=== PATIENT | male | born 1990 | race Caucasian/White ===

== ENCOUNTER 2017-12-06 18:06 | Emergency (ER) | payer MEDICAID, OTHER ==
[~2017-12-06] VITALS: Ht 170.2 cm; Wt 64.0 kg
[2017-12-06 18:10] VITALS: BP 150/89
[2017-12-06 18:45] LABS: BASOPHILS % (AUTO) 0.5 % (0-1); EOSINOPHILS # (AUTO) 0.3 X10'3 (0-0.9); EOSINOPHILS % (AUTO) 3.1 % (0-6); HEMATOCRIT 44.5 % (42.0-52.0); HEMOGLOBIN 15.5 g/dl (14.0-17.9); LYMPHOCYTES # (AUTO) 2.3 X10'3 (1.1-4.8); LYMPHOCYTES % (AUTO) 22.3 % (21-51); MEAN CORPUSCULAR HEMOGLOBIN 32.5 PG (27.0-31.0); MEAN CORPUSCULAR HGB CONC 34.8 % (33.0-36.5); MEAN CORPUSCULAR VOLUME 93.3 FL (78-98); MEAN PLATELET VOLUME 7.7 FL (7.4-10.4); MONOCYTES # (AUTO) 0.7 X10'3 (0-0.9); MONOCYTES % (AUTO) 7.1 % (2-12); NEUTROPHILS # (AUTO) 6.8 X10'3 (1.8-7.7); PLATELET COUNT 337 X10'3 (140-440); RED BLOOD COUNT 4.77 X10'6 (4.70-6.10); RED CELL DISTRIBUTION WIDTH 13.2 % (11.5-14.5); WHITE BLOOD COUNT 10.1 X10'3 (4.5-11.0)
[2017-12-06 19:00] LABS: PARTIAL THROMBOPLASTIN TIME 24 SECONDS (22-32); PROTHROMBIN TIME 10.1 SECONDS (9.0-12.0)
[2017-12-06 19:02] LABS: ALANINE AMINOTRANSFERASE 45 U/L (12-78); ALBUMIN 4.4 G/DL (3.4-5.0); ALBUMIN/GLOBULIN RATIO 1.1 (1.1-1.5); ALKALINE PHOSPHATASE 122 IU/L (46-116); ANION GAP 11 (8-16); ASPARTATE AMINO TRANSFERASE 17 U/L (10-37); BILIRUBIN,TOTAL 0.2 MG/DL (0.1-1.0); BLOOD UREA NITROGEN 12 MG/DL (7-18); BUN/CREATININE RATIO 11.5 (5.4-32.0); CALCIUM 8.8 MG/DL (8.5-10.1); CHLORIDE 104 MMOL/L (99-107); CREATININE 1.04 MG/DL (0.60-1.10); GLUCOSE 173 MG/DL (70-104); POTASSIUM 3.4 MMOL/L (3.5-5.1); SODIUM 142 MMOL/L (135-145); TOTAL CARBON DIOXIDE 26.9 MMOL/L (24-32); TOTAL PROTEIN 8.3 G/DL (6.4-8.2); eGFR 85 ML/MIN
== END 2017-12-06 22:45 | disposition left against medical advice (07) ==
LOC: ER 18:06
DX: R07.89 Other chest pain (principal); Z53.21 Procedure and treatment not carried out due to patient leaving prior to being seen by health care provider
CPT/HCPCS: 36415; 80053; 84484; 85025; 85610; 85730; 99281

== ENCOUNTER 2019-06-03 19:48 | Inpatient (IN) | payer MEDICAID, OTHER ==
[~2019-06-03] VITALS: Ht 170.2 cm; Wt 68.2 kg
[~2019-06-03 19:48] MED LIST: thiamine inj. 100 MG, folic acid inj. 2 MG in normal saline 100ml IV soln 100 ML IV SCH
[2019-06-03 20:29] LABS: BASOPHILS # (AUTO) 0.1 X10'3 (0-0.2); BASOPHILS % (AUTO) 0.4 % (0-1); EOSINOPHILS # (AUTO) 0.1 X10'3 (0-0.9); EOSINOPHILS % (AUTO) 0.6 % (0-6); HEMATOCRIT 39.6 % (42.0-52.0); HEMOGLOBIN 13.5 g/dl (14.0-17.9); MEAN CORPUSCULAR HEMOGLOBIN 32.5 PG (27.0-31.0); MEAN CORPUSCULAR HGB CONC 34.1 g/dL (33.0-36.5); MEAN CORPUSCULAR VOLUME 95.3 FL (78-98); MEAN PLATELET VOLUME 7.8 FL (7.4-10.4); MONOCYTES # (AUTO) 1.7 X10'3 (0-0.9); MONOCYTES % (AUTO) 8.6 % (2-12); NEUTROPHILS # (AUTO) 16.6 X10'3 (1.8-7.7); NEUTROPHILS % (AUTO) 85.4 % (42-75); PLATELET COUNT 310 X10'3 (140-440); RED BLOOD COUNT 4.15 X10'6 (4.70-6.10); RED CELL DISTRIBUTION WIDTH 12.6 % (11.5-14.5); WHITE BLOOD COUNT 19.4 X10'3 (4.5-11.0)
[2019-06-03 20:37] LABS: PARTIAL THROMBOPLASTIN TIME 31 SECONDS (22-32)
[2019-06-03 20:39] LABS: ALANINE AMINOTRANSFERASE 90 U/L (12-78); ALBUMIN 3.4 G/DL (3.4-5.0); ALBUMIN/GLOBULIN RATIO 0.8 (1.1-1.5); ALKALINE PHOSPHATASE 134 IU/L (46-116); ANION GAP 7 (8-16); ASPARTATE AMINO TRANSFERASE 109 U/L (10-37); BILIRUBIN,TOTAL 0.5 MG/DL (0.1-1.0); BLOOD UREA NITROGEN 9 MG/DL (7-18); BUN/CREATININE RATIO 9.2 (5.4-32.0); CALCIUM 8.8 MG/DL (8.5-10.1); CHLORIDE 100 MMOL/L (99-107); CREATININE 0.98 MG/DL (0.60-1.10); GLUCOSE 142 MG/DL (70-104); POTASSIUM 3.9 MMOL/L (3.5-5.1); SODIUM 133 MMOL/L (135-145); TOTAL CARBON DIOXIDE 26.4 MMOL/L (24-32); TOTAL PROTEIN 7.8 G/DL (6.4-8.2); eGFR 90 ML/MIN
--- NOTE | 2019-06-03 21:09 | NUR ---
Claudia RN; Urine collected from patient and walked to Lab by HERSON Mccabe.
[2019-06-03 21:18] LABS: CLARITY,URINE CLEAR (Clear); COLOR,URINE YELLOW (Yellow); GLUCOSE, URINE NEGATIVE (Neg); KETONES,URINE NEGATIVE (Neg); LEUKOCYTE ESTERASE ,URINE TRACE (Neg); NITRITES, URINE NEGATIVE (Neg); OCCULT BLOOD,URINE NEGATIVE (Neg); PH,URINE 7.5 (4.8-8.0); PROTEIN,URINE NEGATIVE (Neg); UROBILINOGEN,URINE 0.2 E.U/dL (0.2-1.0)
[2019-06-03 21:23] LABS: UA COLLECTION TYPE CLN CATCH MIDSTREAM
[2019-06-03 21:24] LABS: BACTERIA,URINE FEW /HPF (Neg); RBC,URINE 0-2 /HPF (0-2); SQUAMOUS EPITHELIAL CELL,UR FEW /LPF (FEW); WBC,URINE 0-4 /HPF (0-4)
[2019-06-03 21:29] LABS: URINE AMPHETAMINE SCREEN POSITIVE (Neg); URINE BARBITUATE SCREEN NEGATIVE (Neg); URINE BENZODIAZEPINES SCREEN NEGATIVE (Neg); URINE CANNABINOID SCREEN POSITIVE (Neg); URINE COCAINE SCREEN NEGATIVE (Neg); URINE METHADONE SCREEN NEGATIVE (Neg); URINE OPIATE SCREEN NEGATIVE (Neg); URINE PHENCYCLIDINE SCREEN NEGATIVE (Neg)
[2019-06-03] MEDS ORDERED: normal saline 1000ML IV soln IV ONE (22:40)
[2019-06-03] MEDS ORDERED: CefTRIAXone 2gm/D5W 50ml 50 ML IV ONE (22:40)
[2019-06-03] MEDS ORDERED: TETanus/Pertussis (Acell)/Diphther VAC/PF (Tdap-Adult) 0.5ml syringe IM ONE (22:40)
[2019-06-03] MEDS ORDERED: vancomycin/NS 1 GM ADD-VANTAGE 250 ML IV ONE (22:40)
[2019-06-03] MEDS ORDERED: NO HOME MEDS (22:51)
[2019-06-03] MEDS ORDERED: HYDROmorphone inj. 0.5 MG/0.5 ML DISP.SYRIN IV PRN (23:05)
[2019-06-03] MEDS ORDERED: ondansetron/PF 4mg/2ml inj IV PRN (23:05)
[2019-06-03] MEDS ORDERED: magnesium hydroxide 30ml (MOM) UD suspension PO PRN (23:05)
[2019-06-03] MEDS ORDERED: potassium Cl 20 mEq SR tablet PO PRN ×2 (23:05)
[2019-06-03] MEDS ORDERED: acetaminophen 325mg tablet PO PRN (23:05)
[2019-06-03] MEDS ORDERED: magnesium Cl slow-release 64mg tablet PO PRN (23:05)
[2019-06-03] MEDS ORDERED: mag hydrox/Alum hydrox/simeth 30ml oral suspension PO PRN (23:05)
[2019-06-03] MEDS ORDERED: magnesium 2GM in 50ml NS 50 ML IV PRN (23:05)
[2019-06-03] MEDS ORDERED: potassium CL 10mEq/100ml bag 100 ML IV PRN ×2 (23:05)
[2019-06-03] MEDS ORDERED: diphenhydrAMINE 25mg capsule PO PRN (23:05)
[2019-06-03] MEDS ORDERED: magnesium 4gm in 100ml NS 100 ML IV PRN (23:05)
[2019-06-03] MEDS: normal saline 1000ml 1,000 ML IV SCH (23:19)
[2019-06-03] MEDS ORDERED: haloperidol lactate 5mg/ml inj IM PRN (23:45)
[2019-06-03] MEDS ORDERED: LORazepam 2 mg/ml vial IV PRN (23:45)
[2019-06-03] MEDS ORDERED: thiamine inj. 100 MG in normal saline 100ml IV soln 100 ML IV ONE (23:45)
[2019-06-04 00:30] VITALS: BP 122/69
[2019-06-04] MEDS: HYDROmorphone 1 mg/ml syringe IV PRN ×3 (00:58→09:03)
[2019-06-04 06:00] VITALS: BP 107/59
--- NOTE | 2019-06-04 06:15 | NUR ---
Patient in room ORTHO 4009. I have received report from and had the opportunity to ask questions and assume patient care CLEO Schroeder
[2019-06-04 06:24] LABS: ALANINE AMINOTRANSFERASE 97 U/L (12-78); ALBUMIN 2.9 G/DL (3.4-5.0); ALBUMIN/GLOBULIN RATIO 0.7 (1.1-1.5); ALKALINE PHOSPHATASE 125 IU/L (46-116); AMYLASE 21 U/L (25-115); ANION GAP 7 (8-16); ASPARTATE AMINO TRANSFERASE 74 U/L (10-37); BILIRUBIN,TOTAL 0.3 MG/DL (0.1-1.0); BLOOD UREA NITROGEN 6 MG/DL (7-18); BUN/CREATININE RATIO 7.3 (5.4-32.0); CALCIUM 8.2 MG/DL (8.5-10.1); CHLORIDE 105 MMOL/L (99-107); CREATININE 0.82 MG/DL (0.60-1.10); GLUCOSE 112 MG/DL (70-104); LIPASE 112 U/L (73-393); POTASSIUM 3.7 MMOL/L (3.5-5.1); SODIUM 138 MMOL/L (135-145); TOTAL CARBON DIOXIDE 26.1 MMOL/L (24-32); TOTAL PROTEIN 7.2 G/DL (6.4-8.2); eGFR > 90 ML/MIN
[2019-06-04 07:03] LABS: BASOPHILS % (AUTO) 0.2 % (0-1); EOSINOPHILS # (AUTO) 0.2 X10'3 (0-0.9); EOSINOPHILS % (AUTO) 1.6 % (0-6); HEMATOCRIT 40.4 % (42.0-52.0); HEMOGLOBIN 13.7 g/dl (14.0-17.9); LYMPHOCYTES # (AUTO) 1.3 X10'3 (1.1-4.8); LYMPHOCYTES % (AUTO) 8.4 % (21-51); MEAN CORPUSCULAR HEMOGLOBIN 32.4 PG (27.0-31.0); MEAN CORPUSCULAR HGB CONC 33.8 g/dL (33.0-36.5); MEAN CORPUSCULAR VOLUME 95.9 FL (78-98); MEAN PLATELET VOLUME 8.3 FL (7.4-10.4); MONOCYTES # (AUTO) 1.9 X10'3 (0-0.9); MONOCYTES % (AUTO) 12.6 % (2-12); NEUTROPHILS # (AUTO) 11.7 X10'3 (1.8-7.7); NEUTROPHILS % (AUTO) 77.2 % (42-75); PLATELET COUNT 265 X10'3 (140-440); RED BLOOD COUNT 4.21 X10'6 (4.70-6.10); RED CELL DISTRIBUTION WIDTH 12.5 % (11.5-14.5); WHITE BLOOD COUNT 15.2 X10'3 (4.5-11.0)
[2019-06-04] MEDS ORDERED: thiamine inj. 100 MG, folic acid inj. 2 MG in normal saline 100ml IV soln 100 ML IV SCH (08:00)
[2019-06-04] MEDS: K and/or MAG REPLACEMENT MC SCH (08:00)
[2019-06-04] MEDS ORDERED: MVI, adult No.4 with vit. K 10 ML in dextrose 5% water 500ml 500 ML IV SCH ×2 (08:00)
[2019-06-04] MEDS: normal saline 1000ml 1,000 ML IV SCH ×2 (09:01→20:42)
[2019-06-04] MEDS: CefTRIAXone/D5W-Rocephin 1gm 50 ML IV SCH (09:07)
[2019-06-04 10:00] VITALS: BP 123/74
--- NOTE | 2019-06-04 11:59 | NUR ---
paged Dr Awan: PAGER ID: [phone] MESSAGE: [id number] Gregory Rice: administered 1mg dilaudid 0900 effective for about 2 hrs; Pt 05/30/crying. Requesting breakthrough medication for relief. R arm merle. abx running. Olimpia [id number]
--- NOTE | 2019-06-04 12:14 | NUR ---
started Vanco at 1130/will retime w/pharmacy 1st dose
[2019-06-04] MEDS: LORazepam 2 mg/ml vial IV PRN ×2 (12:24→20:42)
[2019-06-04] MEDS: vancomycin/NS 1 GM ADD-VANTAGE 250 ML IV SCH ×3 (13:22→20:42)
[2019-06-04 18:00] VITALS: BP 137/71
--- NOTE | 2019-06-04 18:30 | NUR ---
Received report from Olimpia GALLO, assumed care with Lisa GALLO.
[2019-06-04] MEDS ORDERED: vancomycin/NS 1 GM ADD-VANTAGE 250 ML IV SCH (20:00)
--- NOTE | 2019-06-04 20:00 | NUR ---
Patient has visitor at bedside and expressing wanting to leave to go outside to smoke a cigarette. Education provided to patient about hospital policy about not being able to leave the floor and that this hospital is a no smoking campus. Pt had further questions about how long he would be here. Pt educated about POC and the importance of staying to receive his antibiotics and the risk of the infection getting worse if he leaves at this time. Pt asking at this time if he could leave and come back in the morning to see the doctor. Explained to the patient that is not how it works, that he would have to go through the ER to start the process all over again and he would miss several doses of antibiotics needed. Pt verbalized understanding at this time and is in agreement to stay. Call light within reach, will continue to monitor.
[2019-06-04] MEDS: HYDROcodone/acetaminophen 10/325mg tab PO PRN (20:43)
[2019-06-04 22:00] VITALS: BP 127/83
[2019-06-05] MEDS: HYDROcodone/acetaminophen 10/325mg tab PO PRN ×2 (02:30→08:30)
[2019-06-05] MEDS: LORazepam 2 mg/ml vial IV PRN (02:31)
[2019-06-05] MEDS ORDERED: VANCOMYCIN LEVEL IV ONE (03:30)
[2019-06-05 03:45] LABS: BASOPHILS % (AUTO) 0.3 % (0-1); EOSINOPHILS # (AUTO) 0.2 X10'3 (0-0.9); EOSINOPHILS % (AUTO) 1.5 % (0-6); HEMATOCRIT 41.9 % (42.0-52.0); HEMOGLOBIN 14.3 g/dl (14.0-17.9); LYMPHOCYTES # (AUTO) 1.4 X10'3 (1.1-4.8); LYMPHOCYTES % (AUTO) 9.7 % (21-51); MEAN CORPUSCULAR HEMOGLOBIN 32.7 PG (27.0-31.0); MEAN CORPUSCULAR HGB CONC 34.2 g/dL (33.0-36.5); MEAN CORPUSCULAR VOLUME 95.5 FL (78-98); MEAN PLATELET VOLUME 7.6 FL (7.4-10.4); MONOCYTES # (AUTO) 1.9 X10'3 (0-0.9); MONOCYTES % (AUTO) 13.2 % (2-12); NEUTROPHILS # (AUTO) 10.7 X10'3 (1.8-7.7); NEUTROPHILS % (AUTO) 75.3 % (42-75); PLATELET COUNT 291 X10'3 (140-440); RED BLOOD COUNT 4.39 X10'6 (4.70-6.10); RED CELL DISTRIBUTION WIDTH 12.8 % (11.5-14.5); WHITE BLOOD COUNT 14.2 X10'3 (4.5-11.0)
[2019-06-05 03:59] LABS: ALANINE AMINOTRANSFERASE 143 U/L (12-78); ALBUMIN 2.9 G/DL (3.4-5.0); ALBUMIN/GLOBULIN RATIO 0.6 (1.1-1.5); ALKALINE PHOSPHATASE 163 IU/L (46-116); AMYLASE 22 U/L (25-115); ANION GAP 8 (8-16); ASPARTATE AMINO TRANSFERASE 87 U/L (10-37); BILIRUBIN,TOTAL 0.2 MG/DL (0.1-1.0); BLOOD UREA NITROGEN 10 MG/DL (7-18); CALCIUM 8.8 MG/DL (8.5-10.1); CHLORIDE 104 MMOL/L (99-107); CREATININE 0.91 MG/DL (0.60-1.10); GLUCOSE 117 MG/DL (70-104); POTASSIUM 3.8 MMOL/L (3.5-5.1); SODIUM 138 MMOL/L (135-145); TOTAL CARBON DIOXIDE 26.3 MMOL/L (24-32); TOTAL PROTEIN 7.6 G/DL (6.4-8.2); eGFR > 90 ML/MIN
[2019-06-05 04:00] LABS: LIPASE 100 U/L (73-393); VANCOMYCIN,TROUGH 8.9 UG/ML (6.0-14.0)
[2019-06-05] MEDS: normal saline 1000ml 1,000 ML IV SCH (04:11)
[2019-06-05] MEDS: vancomycin/NS 1 GM ADD-VANTAGE 250 ML IV SCH (04:11)
[2019-06-05 06:00] VITALS: BP 104/58
--- NOTE | 2019-06-05 06:15 | NUR ---
Patient in room ORTHO 4009. I have received report from Skylar Chu and had the opportunity to ask questions and assume patient care.
--- NOTE | 2019-06-05 06:37 | NUR ---
Report given to Keara GALLO.
[2019-06-05] MEDS ORDERED: folic acid 1mg tablet PO SCH (08:00)
[2019-06-05] MEDS ORDERED: thiamine 100mg tablet PO SCH (08:00)
[2019-06-05] MEDS ORDERED: multivitamins, therapeutics tablet PO SCH (08:00)
[2019-06-05] MEDS: K and/or MAG REPLACEMENT MC SCH (08:00)
[2019-06-05] MEDS: CefTRIAXone/D5W-Rocephin 1gm 50 ML IV SCH (08:26)
--- NOTE | 2019-06-05 10:10 | NUR ---
PAGER ID: [phone] MESSAGE: Good morning Dr. Hendrix, Mr. Rice in [id number] is quite agitated and would like to leave, please advise thank you Keara #[phone]
--- NOTE | 2019-06-05 10:45 | NUR ---
Pt was intent on smoking and advised he wanted to leave. Pt stated "we didn't fix it fast enough", referring to the infection in his right hand. Discussed hospital plan of care, smoking policy, leaving AMA, infection control, ABX, possible outcomes. Pt asked if he could take the IV meds home and he could "poke himself to give the antibiotics". Pt's girlfriend was present, attempting to convince him to stay to no avail. Pt stated he was supposed to "go to residential in a couple of days" and he did not want to spend his time out, here. The [facility] also came to speak with him regarding the aforementioned plans and policies. An argument ensued with the girlfriend and she left. Pt adamantly stated he wished to leave and did sign the AMA form. IV was removed and pt was escorted down stairs.
--- NOTE | 2019-06-05 10:55 | NUR ---
PAGER ID: [phone] MESSAGE: Edmond Hendrix, jesse haynes, Mr. Rice in [id number] did leave AMA, Judy had spoken with him as well Thank you Keara
[2019-06-06] MEDS ORDERED: VANCOMYCIN LEVEL IV ONE (11:30)
== END 2019-06-05 10:50 | disposition left against medical advice (07) | DRG 558 ==
LOC: ER 19:49 → ED HOLD 23:11 → EDBEDREQ 23:57 → ORTHO 4S 06-04 00:10
PROVIDERS: ADMIT Family Medicine; ATTEND Family Medicine
DX: M65.841 Other synovitis and tenosynovitis, right hand (principal); L03.113 Cellulitis of right upper limb; F12.10 Cannabis abuse, uncomplicated; F10.10 Alcohol abuse, uncomplicated; F15.10 Other stimulant abuse, uncomplicated; F17.210 Nicotine dependence, cigarettes, uncomplicated; Z53.29 Procedure and treatment not carried out because of patient's decision for other reasons
CPT/HCPCS: 36415; 73130; 80053; 80202; 80305; 81001; 82150; 82948; 83605; 83690; 83735; 84145; 85025; 85610; 85730; 87040; 87070; 87077; 87081; 87088; 87186; 96365; 96368; 99285; G0378; J0696; J1170; J2060; J3370; J3411; J3490; J7030; J7060

== ENCOUNTER 2020-12-18 15:01 | Emergency (ER) | payer MEDICAID ==
[~2020-12-18] VITALS: Ht 170.2 cm; Wt 72.7 kg
[~2020-12-18 15:01] MED LIST changes: +CEPH250T PO; +DOXY100C76 PO; +NO HOME MEDS; -thiamine inj. 100 MG, folic acid inj. 2 MG in normal saline 100ml IV soln 100 ML IV SCH
--- NOTE | 2020-12-18 17:30 | NUR ---
pt to room, assumed care. pt has cat bite to right hand. swelling, redness, and purulent abscess noted.
[2020-12-18] MEDS ORDERED: LIDOcaine 1% W/epiNEPHrine 1:200,000 10ml vial IJ ONE (18:15)
--- NOTE | 2020-12-18 18:49 | NUR ---
per ERP, do not collect wound culture because pt is already on antibiotics.
[2020-12-18 19:09] VITALS: BP 130/86
== END 2020-12-18 18:57 | disposition home or self-care (01) ==
LOC: ER 15:03
DX: L02.511 Cutaneous abscess of right hand (principal); M79.641 Pain in right hand; F12.90 Cannabis use, unspecified, uncomplicated; Z72.89 Other problems related to lifestyle; Z79.2 Long term (current) use of antibiotics
CPT/HCPCS: 10060; 99282

== ENCOUNTER 2021-07-03 15:05 | Inpatient (IN) | payer MEDICAID ==
[~2021-07-03] VITALS: Ht 170.2 cm; Wt 74.2 kg
[~2021-07-03 15:05] MED LIST changes: -CEPH250T PO; -DOXY100C76 PO; +NICO-631 TD; -NO HOME MEDS
[2021-07-03] MEDS ORDERED: CefTRIAXone 2gm/D5W 50ml BAG 50 ML IV ONE (18:20)
[2021-07-03] MEDS ORDERED: vancomycin/NS 1 GM ADD-VANTAGE 250 ML IV ONE (18:20)
[2021-07-03] MEDS ORDERED: ketorolac tromethamine 15mg/ml inj. IV ONE (18:30)
[2021-07-03 19:43] LABS: BASOPHILS # (AUTO) 0.2 X10'3 (0-0.2); BASOPHILS % (AUTO) 1.6 % (0-1); EOSINOPHILS # (AUTO) 0.2 X10'3 (0-0.9); EOSINOPHILS % (AUTO) 1.6 % (0-6); HEMOGLOBIN 14.6 g/dl (14.0-17.9); LYMPHOCYTES # (AUTO) 0.9 X10'3 (1.1-4.8); LYMPHOCYTES % (AUTO) 7.3 % (21-51); MEAN CORPUSCULAR HEMOGLOBIN 32.2 PG (27.0-31.0); MEAN CORPUSCULAR HGB CONC 34.9 g/dL (33.0-36.5); MEAN CORPUSCULAR VOLUME 92.4 FL (78-98); MEAN PLATELET VOLUME 7.9 FL (7.4-10.4); MONOCYTES % (AUTO) 7.9 % (2-12); NEUTROPHILS # (AUTO) 10.5 X10'3 (1.8-7.7); NEUTROPHILS % (AUTO) 81.6 % (42-75); PLATELET COUNT 301 X10'3 (140-440); RED BLOOD COUNT 4.54 X10'6 (4.70-6.10); RED CELL DISTRIBUTION WIDTH 13.4 % (11.5-14.5); WHITE BLOOD COUNT 12.8 X10'3 (4.5-11.0)
[2021-07-03 20:10] LABS: ALANINE AMINOTRANSFERASE 54 U/L (12-78); ALBUMIN 3.4 G/DL (3.4-5.0); ALBUMIN/GLOBULIN RATIO 0.8 (1.1-1.5); ALKALINE PHOSPHATASE 149 IU/L (46-116); ANION GAP 3 (8-16); ASPARTATE AMINO TRANSFERASE 24 U/L (10-37); BILIRUBIN,TOTAL 0.4 MG/DL (0.1-1.0); BLOOD UREA NITROGEN 10 MG/DL (7-18); BUN/CREATININE RATIO 9.4 (5.4-32.0); CALCIUM 8.3 MG/DL (8.5-10.1); CHLORIDE 105 MMOL/L (99-107); CREATININE 1.06 MG/DL (0.60-1.10); GLUCOSE 89 MG/DL (70-104); MAGNESIUM 2.4 MG/DL (1.5-2.4); POTASSIUM 3.4 MMOL/L (3.5-5.1); SODIUM 141 MMOL/L (135-145); TOTAL CARBON DIOXIDE 33.1 MMOL/L (24-32); TOTAL PROTEIN 7.6 G/DL (6.4-8.2); eGFR 81 ML/MIN
[2021-07-03] MEDS ORDERED: nicotine 21mg patch - 24 hr TD ONE (20:55)
[2021-07-03] MEDS ORDERED: temazepam 15mg capsule PO PRN (21:00)
[2021-07-03] MEDS ORDERED: HYDROcodone/acetaminophen 5mg/325mg tablet PO PRN (21:35)
[2021-07-03] MEDS ORDERED: magnesium hydroxide 30ml (MOM) UD suspension PO PRN (21:35)
[2021-07-03] MEDS ORDERED: morphine 2 MG/ML inj. syringe IV PRN (21:35)
[2021-07-03] MEDS ORDERED: diphenhydrAMINE 50 mg/ml inj IV PRN (21:35)
[2021-07-03] MEDS ORDERED: potassium Cl 20 mEq SR tablet PO PRN ×2 (21:35)
[2021-07-03] MEDS ORDERED: mag hydrox/Alum hydrox/simeth 30ml oral suspension PO PRN (21:35)
[2021-07-03] MEDS ORDERED: acetaminophen 650mg rectal suppository RC PRN (21:35)
[2021-07-03] MEDS ORDERED: HYDROmorphone inj. 0.5 MG/0.5 ML DISP.SYRIN IV PRN (21:35)
[2021-07-03] MEDS ORDERED: bisacodyl 10mg suppository rectal RC PRN (21:35)
[2021-07-03] MEDS ORDERED: ondansetron 4mg rapidly disintigrating tab PO PRN (21:35)
[2021-07-03] MEDS ORDERED: diphenhydrAMINE 25mg capsule PO PRN (21:35)
[2021-07-03] MEDS ORDERED: acetaminophen 325mg tablet PO PRN ×2 (21:35)
[2021-07-03] MEDS ORDERED: potassium Cl 40MEQ/1/2NS 520ml 520 ML IV PRN ×2 (21:35)
[2021-07-03 21:55] LABS: PARTIAL THROMBOPLASTIN TIME 28 SECONDS (22-32)
[2021-07-03 22:11] LABS: ETHANOL < 0.010 GM/DL (0.0-0.010)
[2021-07-03] MEDS: morphine 2 MG/ML inj. syringe IV PRN (23:11)
[2021-07-03] MEDS: ondansetron/PF 4mg/2ml inj IV PRN (23:11)
[2021-07-04] MEDS ORDERED: vancomycin/NS 1 GM ADD-VANTAGE 250 ML IV ONE (01:15)
[2021-07-04] MEDS: dextrose 5%-1/2 normal saline 1,000 ML IV SCH ×3 (01:27→11:54)
[2021-07-04] MEDS: morphine 2 MG/ML inj. syringe IV PRN ×2 (03:54→08:53)
--- NOTE | 2021-07-04 04:12 | NUR ---
PT REFUSING TO CHANGE INTO A HOSPITAL GOWN
[2021-07-04] MEDS: heparin, porcine 5000 units/ml vial SQ SCH ×3 (08:00→20:00)
[2021-07-04] MEDS: K and/or MAG REPLACEMENT MC SCH ×2 (08:00→20:00)
[2021-07-04 08:17] LABS: BASOPHILS % (AUTO) 0.4 % (0-1); EOSINOPHILS # (AUTO) 0.2 X10'3 (0-0.9); HEMATOCRIT 41.3 % (42.0-52.0); HEMOGLOBIN 14.3 g/dl (14.0-17.9); LYMPHOCYTES # (AUTO) 1.4 X10'3 (1.1-4.8); LYMPHOCYTES % (AUTO) 14.7 % (21-51); MEAN CORPUSCULAR HEMOGLOBIN 32.3 PG (27.0-31.0); MEAN CORPUSCULAR HGB CONC 34.5 g/dL (33.0-36.5); MEAN CORPUSCULAR VOLUME 93.5 FL (78-98); MEAN PLATELET VOLUME 8.1 FL (7.4-10.4); MONOCYTES # (AUTO) 0.9 X10'3 (0-0.9); MONOCYTES % (AUTO) 9.1 % (2-12); NEUTROPHILS # (AUTO) 7.1 X10'3 (1.8-7.7); NEUTROPHILS % (AUTO) 73.8 % (42-75); PLATELET COUNT 310 X10'3 (140-440); RED BLOOD COUNT 4.42 X10'6 (4.70-6.10); RED CELL DISTRIBUTION WIDTH 13.1 % (11.5-14.5); WHITE BLOOD COUNT 9.6 X10'3 (4.5-11.0)
[2021-07-04 08:35] LABS: ALANINE AMINOTRANSFERASE 63 U/L (12-78); ALBUMIN 3.3 G/DL (3.4-5.0); ALBUMIN/GLOBULIN RATIO 0.8 (1.1-1.5); ALKALINE PHOSPHATASE 156 IU/L (46-116); ANION GAP 9 (8-16); ASPARTATE AMINO TRANSFERASE 44 U/L (10-37); BILIRUBIN,TOTAL 0.3 MG/DL (0.1-1.0); BLOOD UREA NITROGEN 8 MG/DL (7-18); BUN/CREATININE RATIO 9.5 (5.4-32.0); CALCIUM 8.5 MG/DL (8.5-10.1); CHLORIDE 106 MMOL/L (99-107); CREATININE 0.84 MG/DL (0.60-1.10); GLUCOSE 129 MG/DL (70-104); POTASSIUM 3.5 MMOL/L (3.5-5.1); SODIUM 142 MMOL/L (135-145); TOTAL PROTEIN 7.2 G/DL (6.4-8.2); eGFR > 90 ML/MIN
[2021-07-04] MEDS: docusate sod 100mg capsule PO SCH ×2 (08:53→20:00)
[2021-07-04] MEDS: nicotine 21mg patch - 24 hr TD SCH (08:53)
[2021-07-04] MEDS: pantoprazole 40mg Tablet.DR PO SCH (08:59)
[2021-07-04] MEDS: ondansetron/PF 4mg/2ml inj IV PRN (08:59)
[2021-07-04 11:00] VITALS: BP 120/69
--- NOTE | 2021-07-04 11:00 | NUR ---
pt arriving to floor
--- NOTE | 2021-07-04 11:44 | NUR ---
Per Naveen in pharmacy, it is fine to run vancomycin with d5 1/2 ns
[2021-07-04] MEDS: HYDROcodone/acetaminophen 10/325mg tab PO PRN (11:50)
[2021-07-04] MEDS ORDERED: vancomycin/NS 1 GM ADD-VANTAGE 250 ML IV SCH (12:00)
[2021-07-04] MEDS: HYDROmorphone 1 mg/ml syringe IV PRN ×3 (13:49→22:18)
[2021-07-04] MEDS ORDERED: CefTRIAXone/D5W-Rocephin 1gm 50 ML IV SCH (18:00)
[2021-07-04 18:30] VITALS: BP 108/67
--- NOTE | 2021-07-04 19:08 | NUR ---
report given to Severino GALLO. patient awake in bed, no signs of distress. all questions answered
[2021-07-04] MEDS: lactobacillus rhamnosus 10,000 MMU CELLS/CAPSULE PO SCH (20:00)
[2021-07-04] MEDS: vancomycin/NS 1 GM ADD-VANTAGE 250 ML IV SCH (20:33)
[2021-07-05] VITALS: BP 118/59
[2021-07-05] MEDS: dextrose 5%-1/2 normal saline 1,000 ML IV SCH (01:59)
[2021-07-05] MEDS: vancomycin/NS 1 GM ADD-VANTAGE 250 ML IV SCH (04:30)
[2021-07-05] MEDS: HYDROmorphone 1 mg/ml syringe IV PRN (05:31)
[2021-07-05 06:07] LABS: BASOPHILS % (AUTO) 0.3 % (0-1); EOSINOPHILS # (AUTO) 0.2 X10'3 (0-0.9); EOSINOPHILS % (AUTO) 2.5 % (0-6); HEMATOCRIT 41.3 % (42.0-52.0); LYMPHOCYTES # (AUTO) 1.5 X10'3 (1.1-4.8); LYMPHOCYTES % (AUTO) 18.2 % (21-51); MEAN CORPUSCULAR HEMOGLOBIN 31.9 PG (27.0-31.0); MEAN CORPUSCULAR HGB CONC 33.8 g/dL (33.0-36.5); MEAN CORPUSCULAR VOLUME 94.3 FL (78-98); MEAN PLATELET VOLUME 8.4 FL (7.4-10.4); MONOCYTES % (AUTO) 12.2 % (2-12); NEUTROPHILS # (AUTO) 5.4 X10'3 (1.8-7.7); NEUTROPHILS % (AUTO) 66.8 % (42-75); PLATELET COUNT 307 X10'3 (140-440); RED BLOOD COUNT 4.38 X10'6 (4.70-6.10); RED CELL DISTRIBUTION WIDTH 13.3 % (11.5-14.5); WHITE BLOOD COUNT 8.1 X10'3 (4.5-11.0)
[2021-07-05 06:45] LABS: ANION GAP 10 (8-16); CHLORIDE 107 MMOL/L (99-107); GLUCOSE 116 MG/DL (70-104); POTASSIUM 3.4 MMOL/L (3.5-5.1); SODIUM 143 MMOL/L (135-145); TOTAL CARBON DIOXIDE 25.7 MMOL/L (24-32)
[2021-07-05 06:46] LABS: ALANINE AMINOTRANSFERASE 87 U/L (12-78); ALBUMIN 2.8 G/DL (3.4-5.0); ALBUMIN/GLOBULIN RATIO 0.7 (1.1-1.5); ALKALINE PHOSPHATASE 134 IU/L (46-116); ASPARTATE AMINO TRANSFERASE 64 U/L (10-37); BILIRUBIN,TOTAL 0.2 MG/DL (0.1-1.0); BLOOD UREA NITROGEN 9 MG/DL (7-18); CALCIUM 8.3 MG/DL (8.5-10.1); CREATININE 0.82 MG/DL (0.60-1.10); TOTAL PROTEIN 6.7 G/DL (6.4-8.2); eGFR > 90 ML/MIN
--- NOTE | 2021-07-05 06:50 | NUR ---
Patient in room [facility] 345. I have received report from Severino Cox and had the opportunity to ask questions and assume patient care.
--- NOTE | 2021-07-05 06:53 | NUR ---
Problems reprioritized. Patient report given, questions answered & plan of care reviewed with ALBA. Addendum: 07/05/21 at 0654 by Heber Booth RN Amended: Links added.
[2021-07-05 07:26] VITALS: BP 122/67
[2021-07-05] MEDS: pantoprazole 40mg Tablet.DR PO SCH (07:46)
[2021-07-05] MEDS: lactobacillus rhamnosus 10,000 MMU CELLS/CAPSULE PO SCH (07:46)
[2021-07-05] MEDS: nicotine 21mg patch - 24 hr TD SCH (07:46)
[2021-07-05] MEDS: HYDROcodone/acetaminophen 10/325mg tab PO PRN (07:48)
[2021-07-05] MEDS: docusate sod 100mg capsule PO SCH (07:51)
[2021-07-05] MEDS: heparin, porcine 5000 units/ml vial SQ SCH (07:51)
[2021-07-05] MEDS: K and/or MAG REPLACEMENT MC SCH (08:00)
[2021-07-05] MEDS ORDERED: CLIN-91 PO (09:35)
[2021-07-05] MEDS ORDERED: HYDR-3965 PO (09:35)
--- NOTE | 2021-07-05 10:02 | NUR ---
Pt was stable for discharge, iv dc and intact, all belongings taken with pt and discharge info went over with no questions. pt was walked down to lobby and picked up in a personal vehicle.
[2021-07-05] MEDS ORDERED: VANCOMYCIN LEVEL IV ONE (11:30)
== END 2021-07-05 09:48 | disposition home or self-care (01) | DRG 383 ==
LOC: ER 15:06 → ED HOLD 21:36 → SUR 3N 07-04 11:11
PROVIDERS: ADMIT Family Medicine; ATTEND Family Medicine
DX: L03.114 Cellulitis of left upper limb (principal); E86.0 Dehydration; E87.6 Hypokalemia; F12.90 Cannabis use, unspecified, uncomplicated; L02.512 Cutaneous abscess of left hand; F15.10 Other stimulant abuse, uncomplicated; R74.01 Elevation of levels of liver transaminase levels; Z72.0 Tobacco use; Z79.899 Other long term (current) drug therapy; Z71.51 Drug abuse counseling and surveillance of drug abuser; Z71.6 Tobacco abuse counseling
CPT/HCPCS: 36415; 73130; 80053; 80320; 83605; 83735; 83880; 84100; 84145; 85025; 85610; 85730; 87040; 87081; 99285; G0378; J0696; J1170; J1644; J2270; J2405; J3370

== ENCOUNTER 2022-01-26 15:23 | Emergency (ER) | payer MEDICAID ==
[~2022-01-26] VITALS: Ht 170.2 cm; Wt 75.0 kg
[2022-01-26 15:49] VITALS: BP 113/80
== END 2022-01-26 16:16 | disposition home or self-care (01) ==
LOC: ER 15:24
DX: Z02.89 Encounter for other administrative examinations (principal); F12.90 Cannabis use, unspecified, uncomplicated; F15.90 Other stimulant use, unspecified, uncomplicated; Z72.89 Other problems related to lifestyle; Z79.899 Other long term (current) drug therapy
CPT/HCPCS: 99281

== ENCOUNTER 2024-03-26 14:00 | Emergency (ER) | payer MEDICAID ==
[~2024-03-26] VITALS: Ht 170.2 cm; Wt 82.7 kg
[2024-03-26] MEDS ORDERED: CEPH-585 PO (15:50)
[2024-03-26] MEDS ORDERED: MUPI15CR12 TOP (15:50)
[2024-03-26 16:09] VITALS: BP 141/105; PULSE 68; RESP 16; TEMP 98.1; O2SAT 98
== END 2024-03-26 16:10 | disposition home or self-care (01) ==
LOC: ER 14:01
DX: L02.414 Cutaneous abscess of left upper limb (principal); F17.200 Nicotine dependence, unspecified, uncomplicated; F12.90 Cannabis use, unspecified, uncomplicated; F15.90 Other stimulant use, unspecified, uncomplicated; Z72.89 Other problems related to lifestyle; Z79.2 Long term (current) use of antibiotics; Z79.899 Other long term (current) drug therapy
CPT/HCPCS: 99283

== ENCOUNTER 2024-04-29 09:00 | Emergency (ER) | payer MEDICAID ==
[~2024-04-29] VITALS: Ht 172.7 cm; Wt 84.8 kg
[~2024-04-29 09:00] MED LIST changes: +MUPI15CR12 TOP
[2024-04-29] MEDS: HYDROcodone/acetaminophen 10/325mg tab PO ONE (10:27)
[2024-04-29] MEDS: ondansetron 4mg rapidly disintigrating tab PO ONE (10:27)
[2024-04-29] MEDS ORDERED: SULF1TAB49 PO (12:41)
[2024-04-29] MEDS: CefTRIAXone 1000mg IM Kit (w/lidocaine diluent) IM ONE (13:05)
[2024-04-29 13:18] VITALS: BP 134/89; PULSE 79; RESP 16; O2SAT 98
[2024-04-29 13:33] VITALS: TEMP 97.8
== END 2024-04-29 13:25 | disposition home or self-care (01) ==
LOC: ER 09:01
DX: J34.0 Abscess, furuncle and carbuncle of nose (principal); F15.90 Other stimulant use, unspecified, uncomplicated; F12.90 Cannabis use, unspecified, uncomplicated; R51.9 Headache, unspecified; Z79.899 Other long term (current) drug therapy; Z72.89 Other problems related to lifestyle
CPT/HCPCS: 70486; 96372; 99285; J0696

== ENCOUNTER 2024-09-12 10:43 | Emergency (ER) | payer MEDICAID ==
[~2024-09-12] VITALS: Ht 172.7 cm; Wt 84.0 kg
[2024-09-12] MEDS: ketorolac trometh 15mg/ml vial 15 MG/ML ML IM ONE (13:22)
[2024-09-12] MEDS ORDERED: LIDO700A32 TOP (14:55)
[2024-09-12] MEDS ORDERED: PRED20TA PO (14:55)
[2024-09-12 15:40] VITALS: BP 146/73; PULSE 76; RESP 15; TEMP 98.6; O2SAT 99
== END 2024-09-12 15:11 | disposition home or self-care (01) ==
LOC: ER 10:44
DX: M54.17 Radiculopathy, lumbosacral region (principal); F12.90 Cannabis use, unspecified, uncomplicated; F15.90 Other stimulant use, unspecified, uncomplicated
CPT/HCPCS: 72131; 96372; 99285; J1885